=== PATIENT | female | born 1990 | race African-American/Black ===

== ENCOUNTER 2021-03-10 10:17 | Emergency (ER) | payer SELFPAY ==
[~2021-03-10] VITALS: Ht 165.1 cm; Wt 58.0 kg
[2021-03-10 11:03] LABS: CLARITY URINE CLEAR (CLEAR); COLOR URINE YELLOW (YELLOW); KETONES URINE NEGATIVE (NEGATIVE); LEUKOCYTE ESTERASE URINE NEGATIVE (NEGATIVE); NITRITE URINE NEGATIVE (NEGATIVE); OCCULT BLOOD URINE NEGATIVE (NEGATIVE); PROTEIN URINE NEGATIVE (NEGATIVE); SPECIFIC GRAVITY URINE 1.018 (1.005-1.030); UROBILINOGEN URINE 0.2 E.U./dL (0.2-1.0)
[2021-03-10] MEDS ORDERED: IBUPROFEN 600MG TABLET PO STA (11:59)
[2021-03-10] MEDS ORDERED: IBUP-2029 PO (13:05)
[2021-03-10 13:36] VITALS: BP 116/74
== END 2021-03-10 13:37 | disposition home or self-care (01) ==
LOC: ER 10:17
DX: U07.1 COVID-19 (principal)
CPT/HCPCS: 81003; 87426; 87804; 99283; Z7610

== ENCOUNTER 2021-09-13 15:44 | Emergency (ER) | payer MEDICAID, OTHER, SELFPAY ==
[~2021-09-13] VITALS: Ht 170.2 cm; Wt 61.0 kg
[~2021-09-13 15:44] MED LIST: IBUP-2029 PO
[2021-09-13] MEDS ORDERED: ONDANSETRON HCL 4MG/2ML INJ IV ONE (16:45)
[2021-09-13] MEDS ORDERED: VISCOUS LIDOCAINE 2% 15 ML UDC PO ONE (16:45)
[2021-09-13] MEDS ORDERED: MAGNESIUM/ALUMINUM HYDROXIDE/SIMETHICONE 30ML UDC PO ONE (16:45)
[2021-09-13] MEDS ORDERED: SODIUM CHLORIDE 0.9% 1,000 ML IV ONE (16:45)
[2021-09-13 17:35] LABS: BASOPHILS % 0.4 % (0.0-2.0); EOSINOPHILS % 0.1 % (0.0-5.0); HEMATOCRIT. 45.2 % (36.0-48.0); HEMOGLOBIN. 15.2 g/dL (12.0-16.0); LYMPHOCYTES % 19.2 % (20.0-50.0); MEAN CORPUSCULAR HEMOGLOBIN 26.7 pg (28.0-32.0); MEAN CORPUSCULAR VOLUME 79.6 fL (81.0-99.0); MEAN PLATELET VOLUME 9.5 fl (7.4-10.4); MONOCYTES % 9.5 % (2.0-8.0); NEUTROPHILS % 70.8 % (40.0-76.0); PLATELET 290 x1000/uL (130-400); RED BLOOD CELL COUNT 5.67 mill/uL (4.2-5.4); RED CELL DISTRIBUTION WIDTH 13.3 % (11.6-14.6)
[2021-09-13 17:52] LABS: CHLORIDE 97 mEq/L (98-107)
[2021-09-13 18:14] LABS: B-HCG QUANTITATIVE 164698 mIU/mL (<3)
[2021-09-13] MEDS ORDERED: ACETAMINOPHEN 325MG TABLET PO ONE (19:30)
[2021-09-13] MEDS ORDERED: DEXT 5%/0.9% NACL 1,000 ML IV ONE (19:30)
[2021-09-13] MEDS ORDERED: POTASSIUM BICARB/CIT ACID 25 MEQ TABLET.EFF PO ONE (21:15)
[2021-09-13 22:39] LABS: CLARITY URINE CLEAR (CLEAR); COLOR URINE YELLOW (YELLOW); KETONES URINE 4+ (NEGATIVE); LEUKOCYTE ESTERASE URINE NEGATIVE (NEGATIVE); NITRITE URINE NEGATIVE (NEGATIVE); OCCULT BLOOD URINE NEGATIVE (NEGATIVE); PROTEIN URINE 2+ (NEGATIVE); SPECIFIC GRAVITY URINE 1.029 (1.005-1.030)
[2021-09-13] MEDS ORDERED: ONDA4TAB11 PO (22:59)
[2021-09-13 23:15] VITALS: BP 110/89
== END 2021-09-13 23:29 | disposition home or self-care (01) ==
LOC: ER 15:44
DX: O26.891 Other specified pregnancy related conditions, first trimester (principal); Z3A.01 Less than 8 weeks gestation of pregnancy
CPT/HCPCS: 36415; 76801; 76817; 80053; 81003; 84702; 85025; 86850; 86900; 86901; 96361; 96374; 99285; J2405; J7030; J7042